=== PATIENT | female | born 1995 | race Caucasian/White ===

== ENCOUNTER → 2018-11-09 07:35 | Outpatient (CLI) | payer OTHER, SELFPAY ==
--- NOTE | 2018-11-09 | DI.MRI.S_ITS ---
PROCEDURE: MR ANKLE RT WO CON INDICATIONS: right ankle pain TECHNIQUE: Noncontrast sagittal T1 spin echo and T2 fast spin echo with fat saturation, axial proton density fast spin echo and T2 fast spin echo with fat saturation, coronal T1 spin echo and T2 fast spin echo with fat saturation through the ankle/hindfoot. COMPARISON: None. FINDINGS: Image quality: Significant susceptibility artifacts in lateral aspect of distal lower leg and ankle is seen from ankle fixation hardware.. Bones and joints: Patient is status post internal fixation of distal fibular shaft with significant susceptibility artifacts. No gross marrow edema. No evidence of acute fracture or dislocation. No hindfoot coalitions. No osteochondral injuries of the talar dome. No pathologic joint effusions. Medial structures: The posterior tibialis, flexor digitorum longus, and flexor hallucis longus tendons are intact. The posterior tibial neurovascular bundle appears normal within the tarsal tunnel, without extrinsic mass effect. The deep layer (anterior and posterior tibiotalar ligaments) and superficial layer (tibionavicular, tibiospring, and tibiocalcaneal ligaments) of the deltoid ligament appear normal. The spring ligament components (superomedial calcaneonavicular, medioplantar oblique calcaneonavicular, and inferoplantar longitudinal ligaments) are intact. Lateral structures: There is suggestion of sprain/low-grade partial-thickness tear involving anterior and posterior talofibular ligaments. Calcaneofibular ligament is not well seen. More superiorly, the anterior and posterior tibiofibular ligaments appear intact, as is the intermalleolar ligament. The tibiofibular syndesmosis is normal in width at 2 mm or less. The peroneus longus and brevis tendons are not well visualized due to significant susceptibility artifact in this area. No gross full-thickness peroneus tendon rupture. Adjacent bony peroneal tubercle and retrotrochlear prominence are normal in size. The sinus tarsi demonstrates normal fatty signal, without edema, fibrosis, or cyst formation. Visualized sinus tarsi components (cervical ligament, interosseous talocalcaneal ligament, roots of the inferior extensor retinaculum) appear normal. The calcaneonavicular and calcaneocuboid components of the bifurcate ligament appear intact. The dorsal calcaneocuboid ligament appears intact. Anterior structures: The tibialis anterior, extensor hallucis longus, and extensor digitorum longus tendons appear intact. The dorsal talonavicular ligament appears intact. Posterior and plantar structures: Achilles tendon is intact. Medial and lateral bands of the plantar fascia are of normal thickness. No abductor digiti quinti muscle atrophy to suggest Watson neuropathy. IMPRESSION: 1. Post ORIF changes in distal fibular shaft and lateral malleolus with significant susceptibility artifact. No gross marrow edema. No acute fracture or dislocation. 2. Limited evaluation of peroneus tendons with no obvious full-thickness peroneus tendon rupture or signal abnormality. Rest of ankle tendons are intact. 3. Limited evaluation of lateral ankle ligaments. Suggestion of low-grade partial-thickness tear/sprain of anterior talofibular and posterior talofibular ligaments. Medial ankle ligaments are intact. Dictated by: Mk Palacios M.D. on 11/09/2018 at 9:00 Approved by: Mk Palacios M.D. on 11/09/2018 at 9:17
== END ==
PROVIDERS: Visit Provider Student in an Organized Health Care Education/Training Program
DX: M25.571 Pain in right ankle and joints of right foot (principal); Z87.81 Personal history of (healed) traumatic fracture
CPT/HCPCS: 73721